=== PATIENT | male | born 1960 | race Caucasian/White ===

== ENCOUNTER 2020-01-10 10:29 | Outpatient (CLI) | payer OTHER, SELFPAY ==
--- NOTE | ~2020-01-10 | US_ITS ---
EXAMINATION: US venous doppler [facility] DATE: 01/10/2020 11:03 INDICATION: Left lower limb pain TECHNIQUE: Grayscale ultrasound images without and with compression and Doppler ultrasound images of the left lower extremity veins were obtained. COMPARISON: None. FINDINGS: The visualized portions of left common femoral vein, profunda (deep) femoral vein, femoral vein, popl iteal vein, peroneal veins, posterior tibial veins, gastrocnemius vein and greater saphenous vein out flow are patent. IMPRESSION: 1. No deep venous thrombosis in the left lower limb. Reviewed, dictated and finalized at location A.
== END 2020-01-10 10:30 | disposition home or self-care (01) ==
PROVIDERS: PCP Family Medicine; Visit Provider Physician Assistant
DX: M79.605 Pain in left leg (principal); Z86.718 Personal history of other venous thrombosis and embolism
CPT/HCPCS: 93971

== ENCOUNTER 2021-10-20 13:52 | Outpatient (CLI) | payer OTHER, SELFPAY ==
--- NOTE | ~2021-10-20 | XR_ITS ---
EXAM: XR ankle LT 2V HISTORY: PAIN AND SWELLING COMPARISON: None available FINDINGS: Normal mineralization. Tibiotalar joint is aligned. Avulsion fracture fragment at the late ral malleolus. Presumed old avulsion fragment at the medial malleolus. No other fracture. No dislocat ion. Os cuboid. Prominent os trigonum. IMPRESSION: Acute/subacute avulsion fracture off the tip of lateral malleolus. Reviewed, dictated and finalized at location K.
--- NOTE | ~2021-10-20 | US_ITS ---
EXAMINATION: US venous doppler [facility] DATE: 10/20/2021 14:48 INDICATION: M79.662 - Pain in left lower leg TECHNIQUE: Grayscale images without and with compression and Doppler images of the left lower extremi ty veins were obtained. COMPARISON: 01/10/2020. FINDINGS: Thrombus present just below the junction of the deep and superficial femoral veins extending down to the calf. Gastrocnemius, soleus, and lesser saphenous veins not imaged. IMPRESSION: 1. Left lower extremity deep venous thrombosis. Result communicated to Dr. Esparza by Dr. German telephonically at 2:58 PM on 10/20/2021. Reviewed, dictated and finalized at location K. IMPRESSION: 1. Left lower extremity deep venous thrombosis. Result communicated to Dr. Esparza by Dr. German telephonically at 2:58 PM on .
== END 2021-10-20 13:53 | disposition home or self-care (01) ==
LOC: ANHIMG 13:57
PROVIDERS: PCP Family Medicine; Visit Provider Family Medicine
DX: I82.402 Acute embolism and thrombosis of unspecified deep veins of left lower extremity (principal); S82.62XA Displaced fracture of lateral malleolus of left fibula, initial encounter for closed fracture; X58.XXXA Exposure to other specified factors, initial encounter
CPT/HCPCS: 73600; 93971

== ENCOUNTER 2024-07-21 00:28 | Day surgery (SDC) | payer BC, SELFPAY ==
[2024-07-17 11:46] VITALS: BMI 28.3
--- NOTE | 2024-07-18 10:27 | PC.NURSE ---
Spoke with patient regarding medication ELIQUIS. PATIENT verbalizes understanding that the last dose is to be taken on 07/18/2024 and the Endoscopist will instruct them when to restart after the procedure.
[2024-07-21 08:40] VITALS: BP 116/84; PULSE 55; RESP 18; TEMP 35.9; O2SAT 98; BMI 27.8
--- NOTE | 2024-07-21 08:41 | P.PNAN_ITS ---
Anes - Initial Pre Proc Eval Procedure: Operation Date: 07/21/24 10:00 Proposed Procedures p Screening Colonoscopy - Kj Byrnes MD Date/Time: 07/21/24 08:41 Surgeon: Kj Byrnes MD Pre Op Diagnosis: hx colon polyps Patient Data Age: 64 Gender: M Height: 1.75 m Weight: 87 kg Allergies Allergy/AdvReac Type Severity Reaction Status Date / Time Penicillins Allergy Unknown Hives Verified 07/21/24 08:39 Sulfa (Sulfonamide Allergy Unknown hives Verified 07/21/24 08:39 Antibiotics) Home Medications ?Medication ?Instructions ?Recorded ?Confirmed ?Type omega-3 fatty acids 1,000 mg 1,000 mg PO DAILY 01/08/20 07/17/24 History capsule (Fish Oil Concentrate) omeprazole magnesium 20 mg 20 mg PO DAILY 01/08/20 07/17/24 History tablet,delayed release Saccharomyces boulardii 1 tablet PO DAILY 10/29/21 07/17/24 History cetirizine 10 mg tablet (Zyrtec) 10 mg PO DAILY PRN allergy symptoms 10/29/21 07/17/24 History cholecalciferol (vitamin D3) 50 50 mcg PO DAILY 10/29/21 07/17/24 History mcg (2,000 unit) capsule mecobalamin (vitamin B12) 1,000 1,000 mcg PO DAILY 10/29/21 07/17/24 History mcg chewable tablet apixaban 5 mg tablet (Eliquis) See Rx Instructions .Route 04/10/24 07/21/24 Rx .COMPLEX #180 tabs lisinopril 2.5 mg tablet See Rx Instructions .Route 04/10/24 07/17/24 Rx .COMPLEX #90 tabs Vitamin E-400 1 cap PO DAILY 07/17/24 07/17/24 History levocetirizine 5 mg tablet (24HR 5 mg PO DAILY 07/17/24 07/17/24 History Allergy Relief) multivitamin with minerals-folic 2 tablet PO DAILY 07/17/24 07/17/24 History acid 200 mcg chewable tablet (Adult Multivitamin Gummies) Patient hx anesthesia problems: none Family hx anesthesia problems: none Results Review: All pre-operative results and documents have been reviewed as part of the pre- operative evaluation. [facility] Past Medical History Medical History Left ankle instability Subcutaneous mass of back Lower extremity edema Factor V Leiden Per pt from previous w/u years ago Prostate cancer Allergic rhinitis ED (erectile dysfunction) of organic origin Gastroesophageal reflux disease without esophagitis History of DVT (deep vein thrombosis) IgA nephropathy Surgical History Surgical History History of prostatectomy 2010 Dr. Sanders Family History Family History Father Malignant neoplasm of prostate Mother Family history of coronary artery disease Other Hypertension Social History Social History Social History: Smoking status: Never smoker Second hand tobacco smoke exposure: No Alcohol intake: current Drinks per week: 5 Alcohol use details: WEEKENDS Substance use: never Substance use type: does not use Lack of Transportation: No Lack of Food: Never True Current Housing: I Have Housing Concerned About Future Housing: No Difficulty Paying Gas/Electric Bills: No Difficulty Paying for Meds: No Currently Unemployed: No Education: Decline to Answer Difficulty w/ Childcare or Family Care: No Living arrangements: alone Occupation/Education: occupation 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 Gender identity (if verbalized by the patient): Male Sexual Orientation (if Verbalized by the Patient): Straight or Heterosexual Spiritual care concerns: No Anes - Eval Final PreProcedure Day of Procedure 07/21/24 08:41 Patient weight: overweight Heart: regular rate and rhythm Lungs: clear to auscultation Airway: Mallampati scale class II Neurological: alert and oriented Last oral intake: >/= 8 hours ASA classification: III Emergent: no Anesthetic plan: proceed Anesthesia type and monitoring: general GIVS and standard monitoring Results Review: All pre-operative results and documents have been reviewed as part of the pre- operative evaluation. Informed Consent: The patient's anesthetic plan and its attendant risks and benefits were discussed with the patient/family/POA. Questions were solicited and answers provided to the satisfaction of the patient/family/POA.
[2024-07-21] MEDS: LACTATED RINGERS 1,000 ML 150 ML IV CONT (08:46)
--- NOTE | 2024-07-21 08:58 | PM.HPGS ---
History of Present Illness History of Present Illness Consent: Risks, benefits, and alternatives have been discussed and questions answered. Patient agrees to proceed with procedure. Chief complaint: hx colon polyps Narrative: Homer Alvarado is a 64 year old male with colon polyp in 2019 Review of Systems Review of Systems: All systems reviewed & are unremarkable except as noted in HPI and below PMFSH Past Medical History Medical History (Updated 07/21/24 @ 08:58 by Kj Byrnes MD) Colon polyp Left ankle instability Subcutaneous mass of back Lower extremity edema Factor V Leiden Per pt from previous w/u years ago Prostate cancer Allergic rhinitis ED (erectile dysfunction) of organic origin Gastroesophageal reflux disease without esophagitis History of DVT (deep vein thrombosis) IgA nephropathy Surgical History Surgical History History of prostatectomy 2010 Dr. Sanders Family History Family History Father Malignant neoplasm of prostate Mother Family history of coronary artery disease Other Hypertension Social History Social History Social History: Smoking status: Never smoker Second hand tobacco smoke exposure: No Alcohol intake: current Drinks per week: 5 Alcohol use details: WEEKENDS Substance use: never Substance use type: does not use Lack of Transportation: No Lack of Food: Never True Current Housing: I Have Housing Concerned About Future Housing: No Difficulty Paying Gas/Electric Bills: No Difficulty Paying for Meds: No Currently Unemployed: No Education: Decline to Answer Difficulty w/ Childcare or Family Care: No Living arrangements: alone Occupation/Education: occupation Additional occupation/education comments: 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 Gender identity (if verbalized by the patient): Male Sexual Orientation (if Verbalized by the Patient): Straight or Heterosexual Spiritual care concerns: No Meds Home Medications and Allergies Home Medications ?Medication ?Instructions ?Recorded ?Confirmed ?Type omega-3 fatty acids 1,000 mg 1,000 mg PO DAILY 01/08/20 07/17/24 History capsule (Fish Oil Concentrate) omeprazole magnesium 20 mg 20 mg PO DAILY 01/08/20 07/17/24 History tablet,delayed release Saccharomyces boulardii 1 tablet PO DAILY 10/29/21 07/17/24 History cetirizine 10 mg tablet (Zyrtec) 10 mg PO DAILY PRN allergy symptoms 10/29/21 07/17/24 History cholecalciferol (vitamin D3) 50 50 mcg PO DAILY 10/29/21 07/17/24 History mcg (2,000 unit) capsule mecobalamin (vitamin B12) 1,000 1,000 mcg PO DAILY 10/29/21 07/17/24 History mcg chewable tablet apixaban 5 mg tablet (Eliquis) See Rx Instructions .Route 04/10/24 07/21/24 Rx .COMPLEX #180 tabs lisinopril 2.5 mg tablet See Rx Instructions .Route 04/10/24 07/17/24 Rx .COMPLEX #90 tabs Vitamin E-400 1 cap PO DAILY 07/17/24 07/17/24 History levocetirizine 5 mg tablet (24HR 5 mg PO DAILY 07/17/24 07/17/24 History Allergy Relief) multivitamin with minerals-folic 2 tablet PO DAILY 07/17/24 07/17/24 History acid 200 mcg chewable tablet (Adult Multivitamin Gummies) Allergies Allergy/AdvReac Type Severity Reaction Status Date / Time Penicillins Allergy Unknown Hives Verified 07/21/24 08:39 Sulfa (Sulfonamide Allergy Unknown hives Verified 07/21/24 08:39 Antibiotics) Vital Signs Vital Signs - 24 hr 07/21/24 08:40 Temperature 96.6 F L Pulse Rate 55 L Respiratory Rate 18 Blood Pressure 116/84 Pulse Oximetry 98 Oxygen Delivery Room Air Exam Const: General: comfortable and no acute distress HENMT: Face/Nose/Sinus: Normal nares present Eyes: General: appearance normal, both eyes and all related structures Neck: Neck: no JVD Resp: Auscultation: clear to auscultation bilaterally Cardio: Rate: regular rate Rhythm: regular rhythm GI: Inspection: non-distended GI Palp: Yes Soft to palpation Skin: General skin exam: normal color Neuro: General: gait normal Speech: normal speech Extrem: General: normal to inspection Psych: Mental Status: mental status grossly normal Assessment and Plan Assessment and plan (1) Colon polyp: Code(s): K63.5 - Polyp of colon Status: Acute Assessment and Plan: colonoscopy
[2024-07-21 09:14] VITALS: BP 97/57; PULSE 54; RESP 15; O2SAT 96
[2024-07-21 09:24] VITALS: BP 99/61; PULSE 63; RESP 15; O2SAT 100
[2024-07-21 09:34] VITALS: BP 105/67; PULSE 64; RESP 15; O2SAT 100
--- OUTSIDE RECORDS SUMMARY | 2024-07-27 04:53 | XMS_ITS | Continuity of Care Document ---
Author Organization [facility] Address [address] [place] [address] Phone Care Team Providers Care News Assistant Name Role Phone Case Abarca MD Unavailable Unavailable Medications Medication Instructions Dosage Effective Dates (start - stop) Status Comments DEMETRIO-D 12 HOUR TABLET 1 BID - Active RHINOCORT AQUA NASAL SPRAY 1 QD - Active DEMETRIO-D 120-60MG TABS 1 BID - No Longer Active RHINOCORT AQUA 32MCG SPRAY(S) 1 QD - No Longer Active CLARITIN-D 12 HOUR TAB SA 1 BID - No Longer Active RHINOCORT NASAL INHALER 4 QHS - No Longer Active RHINOCORT 32MCG PUFFS 4 QHS - No Longer Active CLARITIN-D 12 HOUR 120-5MG TAB 1 BID - No Longer Active Advance Directives Directive Yes / No Effective Date File Name No Information Encounters Encounter Description Practice Location Reason(s) For Visit Diagnoses Date Provider Providers Copied on Encounter [facility], [address], [place], [place], [address], [place] tel:[phone] [facility] No Information 1 Rima Willoughby. [address] , [address], [place], [place], [id number]. tel:[phone] [facility], [address], [place], [place], [address], [place] tel:[phone] [facility] RHINITIS NEC [address] Conversion Doctor. [address] [facility], [place], [address], [place]. [facility], [address], [place], [place], [address], tel:[phone] [facility] RHINITIS DUE TO POLLEN 2 Jimmie Alvarez. [address] [facility], [facility] [address], [place], [place], [address], [place]. tel:[phone] [facility], [address], [place], [place], [address], [place] tel:[phone] [facility] PROTEINURIA [address] Trame Wilson. [address] [facility], [address], [place], [place], [address]. tel:[phone] [facility], [address], [place], [place], [address], tel:[phone] [facility] HEMATURIA [address] Trame Case. [address] [facility], [address], [place], [place], [address]. tel:[phone] Family History Family Member Type Diagnosis Age At Onset No Information Payers Payer name Insurance type Covered libertarian ID Authoriza tion(s) No Information Social History Type Description Quantity Date Captured Comments Sex Male Smoking Status No Information Chief Complaint And Reason For Visit No Information Reason For Referral Reason For Referral No Information History Of Present Illness Encounter Date Complaint History Of Prese nt Illness No Information Functional Status Date Functional Assessmen t No Information Instructions Date Instruction Additional Infor mation No Information Assessments Type Assessment Date No Information Patient Care Teams Name Effective Dates (start - stop) Status Members No Information
--- OUTSIDE RECORDS SUMMARY | 2024-07-27 04:53 | XMS_ITS | Clinical Summary ---
Author Organization [facility] Address [address] [place] [id number] Phone Care Team Providers Care Railroad Design Consultant Name Role Phone Rahul Esparza MD Primary Care Provider Medications Medication Sig Dispensed Refills Start Date End Date Status lisinopril (PRINIVIL,ZESTRIL) 2.5 MG tablet One daily 5 07/07/2017 Active omega-3 (FISH OIL) 1000 MG capsule one tab twice daily 0 07/02/2016 Active fexofenadine-pseudoeph edrine (DEMETRIO-D 24) 180-240 MG per 24 hr tablet one as needed 0 07/02/2016 Active omeprazole (PriLOSEC) [address] capsule one tab daily 0 07/02/2016 Activ e aspirin (ASPIRIN ADULT LOW DOSE) 81 MG EC tablet 1 tab 3 times weekly 0 08/17/2018 Active LORazepam (ATIVAN) 0.5 MG tablet TK 1 TO 2 TS PO QHS PRN 06/21/2019 Active pentoxifylline (TRENtal) 400 MG CR tablet TK 1 T PO TID 07/06/2019 Active Evening [place] Oil 1000 MG capsule Take 1,000 mg by mouth Active ascorbic acid (VITAMIN C) 500 MG tablet Take 500 mg by mouth 1 (one) time each day Active B Ghzjbnv-D-Drblj Acid (HM SUPER VITAMIN B COMPLEX/C PO) Take by mouth Active alpha tocopherol (VITAMIN E) 100 units capsule Take 100 Units by mouth 1 (one) time each day Active cholecalciferol (VITAMIN D-3) 50 MCG (1999) tablet Take 2,000 Units by mouth 1 (one) time each day Active Active Problems Problem Noted Date Diagnosed Date IgA nephropathy 08/10/2019 Other specified abnormal finding of blood chemis try 07/26/2018 Essential (primary) hypertension 07/02/2016 Resolved Problems Problem Noted Date Diagnosed Date Resolved Date Recurrent and persistent hem aturia with other morphologic changes 06/24/2017 08/10/2019 Immunizations Name Administration Dates Next Due Influenza Split High Dose Preservative Free IM 1 ,04/28/2017 Influenza TIV (IM) 04/04/2016,04/02/2015 Family History Medical History Relation Comments Kidney disease Neg Hx Social History Tobacco Use Types Packs/Day Years Used Date Smoking Tobacco: Never Smokeless Tobacco: Never Alcohol Use Standard Drinks/Week Comments Yes 0 (1 standard drink = 0.6 oz pure alcohol) Alcoholic Drinks/day: occasional use Sex and Gender Information Value Date Recorded Sex Assigned at Not on file Gender Identity Not on file Sexual Orientation Not on file Last Filed Vital Signs Vital Sign Reading Time Taken Comments Blood Pressure 117/69 08/16/2019 2:01 PM [employer] Pulse 73 08/16/2019 2:01 PM [employer] Temperature - - Respiratory Rate - - Oxygen Saturation - - Inhaled Oxygen Concentration - - Weight 84.4 kg (186 lb) 08/16/2019 2:01 PM [employer] Height 175.3 cm (5' 9 ) 08/16/2019 2:01 PM [employer] Body Mass Index 27.47 08/16/2019 2:01 PM [employer] Plan of Treatment Health Maintenance Due Date Last Done Comments Influenza Vaccine (#1) 2024 04/04/2016, 2014 Care Teams Railroad Design Consultant Relationship Specialty Start Date End Date Rahul Esparza MD [address] [facility] [address] [place] [id number] PCP - General 08/17/19
--- OUTSIDE RECORDS SUMMARY | 2024-07-27 04:53 | XMS_ITS | Clinical Summary ---
Author Organization [facility] Address [address] [place] [address]. [place], [place] [id number] [place], [place] [id number] Care Team Providers Care Gas Examiner Name Role Phone Rahul Esparza MD Primary Care Provider [phone] Social History Tobacco Use Types Packs/Day Years Used Date Smoking Tobacco: Never Assessed Sex and Gender Information Value Date Recorded Sex Assigned at Not on file Legal Sex Male 2:34 PM CDT Gender Identity Not on file Sexual Orientation Not on file Plan of Treatment Health Maintenance Due Date Last Done Comments Colorectal Cancer Screening Colonoscopy (10 Years) 1960 Annual Physical 1963 Hepatitis C 1978 COVID-19 Vaccine ( season) 2024 06/03/2022, 06/20/2021, 11/09/2020, Additional history exists Influenza Adult (#1) 2024 05/02/2023, 04/13/2018, 03/19/2018, Additional history exists DTaP, Tdap and Td Vaccines (2 - Td or Tdap) 10/31/2028 10/31/2018 RSV Immunization or 60+ Years (1 - 1-dose 75+ series) 2035 Zoster Vaccines Completed 04/22/2018, 12/27/2017 Meningococcal Vaccine Aged Out No gennaro tano eligible based on patient's age to complete this topic Pneumococcal Vaccine: Pediatrics (0 to 5 Years) and At-Risk Patients (6 to 64 Years) Aged Out No longer eligible based on patient's age to complete this topic RSV Immunizations Under 20 Months Aged Out No longer eligible based on patient's age to complete this topic Insurance [facility] Care Teams Gas Examiner Relationship Specialty Start Date End Date Rahul Esparza MD [address] [place] [address] PCP - General FAMILY PRACTICE 02/09/24
== END 2024-07-21 09:45 | disposition home or self-care (01) ==
PROVIDERS: PCP Family Medicine; Referring Provider Physician Assistant; Visit Provider Internal Medicine Gastroenterology
PROC: 0DJD8ZZ Inspection of Lower Intestinal Tract, Via Natural or Artificial Opening Endoscopic (ICD-10-PCS; CPT 45378; principal; 2024-07-21 10:00)
DX: Z12.11 Encounter for screening for malignant neoplasm of colon (principal); K57.30 Diverticulosis of large intestine without perforation or abscess without bleeding; K21.9 Gastro-esophageal reflux disease without esophagitis; N52.9 Male erectile dysfunction, unspecified; D68.51 Activated protein C resistance; Z79.01 Long term (current) use of anticoagulants; Z98.890 Other specified postprocedural states; Z86.0100 Personal history of colon polyps, unspecified; Z85.46 Personal history of malignant neoplasm of prostate; Z86.718 Personal history of other venous thrombosis and embolism; Z80.42 Family history of malignant neoplasm of prostate; Z82.49 Family history of ischemic heart disease and other diseases of the circulatory system
CPT/HCPCS: 45378; J2704; J7120